=== PATIENT | female | born 1935 | race Caucasian/White ===

== ENCOUNTER → 2017-02-09 | Outpatient (CLI) | payer OTHER, BC | LOC: FIMAGING 15:39 | PROVIDERS: ATTEND Physical Medicine & Rehabilitation Pain Medicine | DX: M51.36 Other intervertebral disc degeneration, lumbar region (principal); M51.37 Other intervertebral disc degeneration, lumbosacral region; M12.88 Other specific arthropathies, not elsewhere classified, other specified site; M48.06 Spinal stenosis, lumbar region; M99.73 Connective tissue and disc stenosis of intervertebral foramina of lumbar region ==

== ENCOUNTER 2017-05-09 09:24 | Emergency (ER) | payer OTHER, BC ==
--- NOTE | 2017-05-09 09:38 | EDPHY ---
H & P Smoking Status: Never smoked Time Seen by Provider: 05/09/17 09:35 HPI/ROS: CHIEF COMPLAINT: Mechanical fall, head injury, right ear laceration HISTORY OF PRESENT ILLNESS: 81-year-old female presents to the emergency department by ambulance after she had a mechanical fall at home around midnight. The patient states that she got out of bed to go to the bathroom and tripped over her walker. She typically uses her walker to ambulate but did not have this with her when she fell. She fell onto a hardwood. Her who was in bed heard the fall and help her walk to the bathroom and then put her back to bed. She sustained a laceration to her right ear. Unknown loss of consciousness. She complains of mild headache. She denies neck or back pain. Denies chest pain or difficulty breathing. Denies abdominal pain. She has a history of osteoarthritis especially in her shoulders. Denies any other injury to her upper or lower extremities. Denies visual changes. No vomiting. She states that she has not eaten breakfast and she feels "hungry." REVIEW OF SYSTEMS: Constitutional: No fever, no chills. Eyes: No double or blurry vision. ENT: No sore throat. Respiratory: No cough, no shortness of breath. Cardiac: No chest pain. Gastrointestinal: No abdominal pain, vomiting or diarrhea. Genitourinary: No dysuria. Musculoskeletal: No neck or back pain. Skin: Right ear laceration. No rashes. Neurological: headache. (Chucho Villegas) Past Medical/Surgical History: Osteoarthritis, hypertension (Chucho Villegas) Social History: and lives independently with her (Chucho Villegas) Physical Exam: General Appearance: Alert, no distress. Mentating normally and answering questions appropriately. Cervical collar in place. at bedside. Eyes: Pupils equal and round. Extraocular motions are all intact. ENT: Mouth: Mucous membranes moist. No dental injury or malocclusion. No hemotympanum. Respiratory: No wheezing, rhonchi, or rales, lungs are clear to auscultation. Cardiovascular: Regular rate and rhythm. Gastrointestinal: Abdomen is soft and nontender, no masses, no rebound or guarding, bowel sounds normal. Neurological: Alert and oriented x 3, cranial nerves II through XII grossly intact Skin: Laceration noted to the right ear involving the helix of the ear. Slow active bleeding is noted. Warm and dry, no rashes. Musculoskeletal: Nontender to palpate along the cervical, thoracic or lumbar spine. Neck is supple. Extremities: Limited range of motion especially of her right shoulder secondary to pain which is chronic for her. Full range of motion of her lower extremities and her upper extremity. Psychiatric: Patient is oriented X 3, there is no agitation. (Chucho Villegas) Constitutional: Initial Vital Signs Temperature (C) 36.3 C 05/09/17 09:42 Heart Rate 94 05/09/17 09:42 Respiratory Rate 20 05/09/17 09:42 Blood Pressure 206/125 H 05/09/17 09:42 O2 Sat (%) 94 05/09/17 09:42 O2 Delivery Mode Room Air Allergies/Adverse Reactions: celecoxib [From Celebrex] Allergy (Intermediate, Verified 05/09/17 10:28) Hives Sulfa (Sulfonamide Antibiotics) Allergy (Mild, Verified 05/09/17 10:28) Diarrhea Home Medications: Medication Instructions Recorded Cholecalciferol Vit D3 [Vitamin D3 1,000 units PO DAILY 06/03/14 (*)] Estradiol 0.5 mg PO Q4D 06/03/14 Herbals/Supplements -Info Only 1 ea PO DAILY 06/03/14 [place]-3 Fatty Acids [Fish Oil 1000 1,000 mg PO DAILY 06/03/14 mg (*)] Progesterone, Micronized 100 mg PO Q4D 06/03/14 [Progesterone] Propranolol HCl [Inderal 20mg (*)] 10 mg PO DAILY PRN 06/03/14 Duexis 800-26.6 mg Tablet 03/07/16 FLUoxetine 03/07/16 MSM 03/07/16 Magnesium 03/07/16 Turmeric 03/07/16 Xanax 03/07/16 traMADol 03/07/16 Cephalexin [Keflex] 500 mg PO TID #21 cap 05/09/17 Medical Decision Making - Diagnostics Imaging Results: Imaging Impressions Cervical Spine CT 05/09/17 09:36 Impression: No acute posttraumatic abnormality identified. 2. CT Cervical Spine Without Contrast History: Trauma. Technique: Multislice helical CT through the cervical spine without contrast from the skull base to T1. Soft tissue and bone evaluation is performed. Sagittal and coronal reconstructions are obtained and reviewed. Dose reduction techniques were utilized. Findings: There is scattered degenerative change throughout the cervical spine particularly between C4 and C7, greatest at C5-C6. Degenerative gas is present in the C6 body. There is a cervical mild dextroscoliosis. Cervical alignment is anatomic. No fracture or dislocation is identified. The relationship between skull base and C1 is normal. The C1-C2 articulation is normally aligned. The odontoid process is intact. There is fusion of the C2-C3 disk space. Facet joints are normally aligned, but fused on the left between C3 and C5 and on the right at C2-C3. The cervical thoracic junction is normally aligned. Soft tissue window evaluation does not show evidence of epidural or prevertebral hematoma. Impression: No fracture identified. Results called and discussed with CHUCHO VILLEGAS, at 05/09/2017 11:44 Final results are concordant with the initial interpretation. General information for patients regarding this examination can be found at [facility]. If you have questions or comments about this report, please contact me at (hospital) or [phone] (cell). Head CT 05/09/17 09:36 Impression: No acute posttraumatic abnormality identified. 2. CT Cervical Spine Without Contrast History: Trauma. Technique: Multislice helical CT through the cervical spine without contrast from the skull base to T1. Soft tissue and bone evaluation is performed. Sagittal and coronal reconstructions are obtained and reviewed. Dose reduction techniques were utilized. Findings: There is scattered degenerative change throughout the cervical spine particularly between C4 and C7, greatest at C5-C6. Degenerative gas is present in the C6 body. There is a cervical mild dextroscoliosis. Cervical alignment is anatomic. No fracture or dislocation is identified. The relationship between skull base and C1 is normal. The C1-C2 articulation is normally aligned. The odontoid process is intact. There is fusion of the C2-C3 disk space. Facet joints are normally aligned, but fused on the left between C3 and C5 and on the right at C2-C3. The cervical thoracic junction is normally aligned. Soft tissue window evaluation does not show evidence of epidural or prevertebral hematoma. Impression: No fracture identified. Results called and discussed with CHUCHO VILLEGAS, at 05/09/2017 11:44 Final results are concordant with the initial interpretation. General information for patients regarding this examination can be found at [email or web address]. If you have questions or comments about this report, please contact me at [phone] (hospital) or [phone] (cell). Procedures: Laceration repair. Verbal consent was obtained from the patient. The 3 cm irregular laceration on the right ear was anesthetized using 1% lidocaine with epinephrine. The wound was irrigated with saline, draped and explored to its base with a gloved finger. Laceration through the cartilage of the ear the noted. The wound was repaired with 6 0 Prolene, 13 sutures. The wound repair was complex. The procedure was performed by myself. (Chucho Villegas) ED Course/Re-evaluation: 09:38 I assessed and examined this patient. I agree with the assessment by EZ Prabhakar, and concur with her plan. (Silvano Singh) 81-year-old female presents to the emergency department after she had a mechanical fall. CT imaging of her head and cervical spine reveal nothing acute. No acute bleeding. Degenerative changes noted in her spine. Patient had a complex laceration to the right helix of the ear xavier the cartilage. The wound was repaired, see procedure note. She will be started on Keflex to prevent infection. Upon discharge, the patient was able to ambulate unassisted without any complaints. She is comfortable being discharged home with her . (Chucho Villegas) Differential Diagnosis: Head injury including but not limited to concussion, skull fracture, intraparenchymal contusion, subarachnoid, subdural and epidural hematoma. Neck pain including but not limited to muscular pain, herniated disc, spine fracture (Chucho Villegas) Departure - Departure Disposition: Home, Routine, Self-Care Clinical Impression: Complex laceration of right ear Qualifiers: Encounter type: initial encounter Qualified Code(s): S01.311A - Laceration without foreign body of right ear, initial encounter Head injury Qualifiers: Encounter type: initial encounter Qualified Code(s): S09.90XA - Unspecified injury of head, initial encounter Cervical strain Qualifiers: Encounter type: initial encounter Qualified Code(s): S16.1XXA - Strain of muscle, fascia and tendon at neck level, initial encounter Condition: Good Instructions: Cervical Strain (ED), Care For Your Stitches (ED), Laceration (ED ), Head Injury (ED), Acute Wounds (ED) Additional Instructions: Wound Care Follow-Up: Removal of sutures in 7 days. Suture removal is complimentary in uncomplicated cases. Infection or abnormal findings would require reevaluation by the MD. In that case, you may be billed. Keflex 500 mg 3 times daily to prevent infection. Return to the emergency department if he notices any signs or symptoms of infection such as redness, swelling, increased pain, fever, purulent drainage. Avoid any activity that might put you at risk for another head injury for at least 1 week. Return to the emergency department if he developed headache, vomiting, altered mental status, or if you feel worse in any way. Referrals: Patient,NotPresent [Unknown] - As per Instructions Prescriptions: Cephalexin [Keflex] 500 mg PO TID #21 cap
[2017-05-09 09:44] VITALS: O2SAT 94
[2017-05-09 13:14] VITALS: BP 161/98; PULSE 89; RESP 18; TEMP 97.9
== END 2017-05-09 13:28 | disposition home or self-care (01) ==
LOC: EDUNIT#
PROC: 09Q0XZZ Repair Right External Ear, External Approach (ICD-10-PCS; principal; 2017-05-09)
DX: S01.311A Laceration without foreign body of right ear, initial encounter (principal); I10 Essential (primary) hypertension; S16.1XXA Strain of muscle, fascia and tendon at neck level, initial encounter; W01.198A Fall on same level from slipping, tripping and stumbling with subsequent striking against other object, initial encounter; Y92.009 Unspecified place in unspecified non-institutional (private) residence as the place of occurrence of the external cause

== ENCOUNTER 2017-12-13 18:26 | Emergency (ER) | payer OTHER, BC ==
[2017-12-13 19:45] LABS: PLATELET COUNT 234 10^3/uL (150-400)
[2017-12-13] MEDS ORDERED: CEPHALEXIN 500 MG CAP PO ONE (19:59)
--- NOTE | 2017-12-13 20:02 | EDPHY ---
H & P Time Seen by Provider: 12/13/17 19:58 HPI/ROS: CHIEF COMPLAINT: Right ankle pain and swelling HISTORY OF PRESENT ILLNESS: Patient is a 82-year-old female sent here by her primary care physician with concern for right ankle infection. She states that approximately 2 months ago she started with a small skin lesion to the medial malleolus after a ground level fall. The wound has been treated by home health that is not healed well secondary to poor circulation. 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 She is not currently taking any antibiotics. The last 3 days she has noticed worsening swelling and redness. She denies any fever. She reports normal range of motion and no pain with range of motion of the ankle. REVIEW OF SYSTEMS: Constitutional: No fever, no chills. Eyes: No discharge. ENT: No sore throat. Cardiovascular: No chest pain, no palpitations. Respiratory: No cough, no shortness of breath. Gastrointestinal: No abdominal pain, no vomiting. Genitourinary: No hematuria. Musculoskeletal: No back pain. Skin: + skin lesions and erythema Neurological: No headache. Smoking Status: Never smoked Physical Exam: General Appearance: Alert and no distress afebrile Eyes: Pupils equal and round no injection. Respiratory: Chest is nontender, lungs are clear to auscultation. Cardiac: regular rate and rhythm. Gastrointestinal: Abdomen is soft and nontender, no masses, bowel sounds normal. Musculoskeletal: 1 cm superficial skin lesion to the medial malleolus with no bony exposure. There is no purulence. There is approximately 4 x 4 area of erythema surrounding the wound with no induration or fluctuance. Pedal pulses are strong cap refill less than 2 sec. She has no calf swelling or tenderness. Extremities have full range of motion and are nontender. Skin: Skin lesion to the medial malleolus. Constitutional: Initial Vital Signs Temperature (C) 36.9 C 12/13/17 18:33 Heart Rate 102 H 12/13/17 18:33 Respiratory Rate 16 12/13/17 18:33 Blood Pressure 170/110 H 12/13/17 18:33 O2 Sat (%) 94 12/13/17 18:33 O2 Delivery Mode Room Air Allergies/Adverse Reactions: celecoxib [From Celebrex] Allergy (Intermediate, Verified 11/15/17 10:28) Hives Sulfa (Sulfonamide Antibiotics) Allergy (Mild, Verified 05/09/17 10:28) Diarrhea Home Medications: Medication Instructions Recorded Cholecalciferol Vit D3 [Vitamin D3 1,000 units PO DAILY 06/03/14 (*)] Estradiol 0.5 mg PO Q4D 06/03/14 Herbals/Supplements -Info Only 1 ea PO DAILY 06/03/14 [place]-3 Fatty Acids [Fish Oil 1000 1,000 mg PO DAILY 06/03/14 mg (*)] Progesterone, Micronized 100 mg PO Q4D 06/03/14 [Progesterone] Propranolol HCl [Inderal 20mg (*)] 10 mg PO DAILY PRN 06/03/14 Duexis 800-26.6 mg Tablet 03/07/16 FLUoxetine 03/07/16 MSM 03/07/16 Magnesium 03/07/16 Turmeric 03/07/16 Xanax 03/07/16 traMADol 03/07/16 Cephalexin [Keflex] 500 mg PO TID #21 cap 05/09/17 Cephalexin [Keflex (*)] 500 mg PO TID 10 Days #30 cap 12/13/17 Medical Decision Making - Diagnostics Imaging Results: Imaging Impressions Ankle X-Ray 12/13/17 19:11 Impression: No acute osseous findings. ED Course/Re-evaluation: Patient is a 82-year-old female with a open wound/ulceration to the malleolus that has become infected. She is not currently taking antibiotics she is afebrile with normal white count and normal lactate. She has full range of motion of the ankle without pain. This appears to be a localized cellulitis. Dr Singh discussed the patient was discuss with Dr. Hernández who recommended Keflex 500 mg 3 times a day and close follow-up in our office. Differential Diagnosis: Septic joint, abscess, osteomyelitis, DVT - Data Points Laboratory Results: Laboratory Results 12/13/17 19:20 12/13/17 12/13/17 12/13/17 19:20 19:20 19:20 WBC 10.44 10^3/uL H 10^3/uL (3.80-9.50) RBC 4.42 10^6/uL 10^6/uL (4.18-5.33) Hgb 14.6 g/dL g/dL (12.6-16.3) Hct 41.2 % % (38.0-47.0) MCV 93.2 fL fL (81.5-99.8) MCH 33.0 pg pg (27.9-34.1) MCHC 35.4 g/dL g/dL (32.4-36.7) RDW 12.9 % % (11.5-15.2) Plt Count 234 10^3/uL 10^3/uL (150-400) MPV 8.9 fL fL (8.7-11.7) Neut % (Auto) 66.2 % % (39.3-74.2) Lymph % (Auto) 15.9 % % (15.0-45.0) [place] % (Auto) 15.1 % H % (4.5-13.0) Eos % (Auto) 1.3 % % (0.6-7.6) Baso % (Auto) 0.8 % % (0.3-1.7) Nucleat RBC Rel Count 0.0 % % (0.0-0.2) Absolute Neuts (auto) 6.91 10^3/uL H 10^3/uL (1.70-6.50) Absolute Lymphs (auto) 1.66 10^3/uL 10^3/uL (1.00-3.00) Absolute Monos (auto) 1.58 10^3/uL H 10^3/uL (0.30-0.80) Absolute Eos (auto) 0.14 10^3/uL 10^3/uL (0.03-0.40) Absolute Basos (auto) 0.08 10^3/uL 10^3/uL (0.02-0.10) Absolute Nucleated RBC 0.00 10^3/uL 10^3/uL (0-0.01) Immature Gran % 0.7 % % (0.0-1.1) Immature Gran # 0.07 10^3/uL 10^3/uL (0.00-0.10) RBC/WBC/PLT Morphology TNP Platelet Estimate TNP ESR 71 MM/HR H MM/HR (0-30) VBG Lactic Acid 1.6 mmol/L mmol/L (0.7-2.1) C-Reactive Protein 33.3 mg/L H mg/L (<10.0) Microbiology Results: MICROBIOLOGY 12/13/17 19:20 Ankle - Skin Gram Stain - Final Departure - Departure Disposition: Home, Routine, Self-Care Clinical Impression: Skin ulcer of ankle, Cellulitis of ankle Condition: Good Instructions: Cellulitis (ED) Additional Instructions: Please follow up with Dr. Hernández tomorrow as soon as possible. She is expecting a call her office to schedule an appointment. Please call tomorrow morning. Will be taking Keflex 500 mg 3 times a day for the next week. Referrals: Cristiane Pond MD [Primary Care Provider] - As per Instructions Nely Hernández MD [Medical Doctor] - As per Instructions Prescriptions: Cephalexin [Keflex (*)] 500 mg PO TID 10 Days #30 cap
[2017-12-13 20:59] VITALS: BP 153/102
== END 2017-12-13 20:59 | disposition home or self-care (01) ==
DX: L03.115 Cellulitis of right lower limb (principal); L97.319 Non-pressure chronic ulcer of right ankle with unspecified severity

== ENCOUNTER → 2018-03-07 | Outpatient (CLI) | payer OTHER, BC | LOC: FIMAGING 17:54 | PROVIDERS: ATTEND Nurse Practitioner | DX: M41.86 Other forms of scoliosis, lumbar region (principal); M43.16 Spondylolisthesis, lumbar region; M47.897 Other spondylosis, lumbosacral region; M53.86 Other specified dorsopathies, lumbar region; M48.07 Spinal stenosis, lumbosacral region ==